=== PATIENT | male | born 1985 | race Caucasian/White ===

== ENCOUNTER 2019-08-29 18:30 | Emergency (ER) | payer OTHER ==
[2019-08-29 18:41] VITALS: BP 137/90; PULSE 92; RESP 18; TEMP 97.8
--- NOTE | 2019-08-29 18:55 | ED ---
Recheck HPI - General Chief Complaint: Recheck/Abnormal Lab/Rx Stated Complaint: Covid exposure, wants test Time Seen by Provider: 08/29/19 18:42 Source: patient Mode of arrival: ambulatory Limitations: no limitations - History of Present Illness Initial Comments: Patient is a 34-year-old male presenting to the emergency department requesting a Covid test. Patient states he had recent exposure to someone who tested positive for Covid. Patient denies any symptoms at this time including fever, cough, chills, shortness of breath, nausea, vomiting, diarrhea. He states he is traveling out of the country soon and needs to know if he is positive or not. He denies history of asthma or COPD. He has no further complaints at this time. Upon arrival to the ER, his vital signs are stable. - Related Data Allergies Allergy/AdvReac Type Severity Reaction Status Date / Time No Known Allergies Allergy Verified 08/29/19 18:36 Review of Systems ROS Statement: Those systems with pertinent positive or pertinent negative responses have been documented in the HPI. ROS Other: All systems not noted in ROS Statement are negative. Past Medical History Past Medical History: No Reported History History of Any Multi-Drug Resistant Organisms: None Reported Past Surgical History: Orthopedic Surgery Additional Past Surgical History / Comment(s): R hand Past Psychological History: No Psychological Hx Reported Smoking Status: Never smoker Past Alcohol Use History: None Reported Past Drug Use History: None Reported General Exam - General Exam Comments Initial Comments: GENERAL: Well-appearing, well-nourished and in no acute distress. HEAD: Atraumatic, normocephalic. EYES: Pupils equal round and reactive to light, extraocular movements intact, sclera anicteric, conjunctiva are normal. ENT: TMs normal, nares patent, oropharynx clear without exudates. Moist mucous membranes. NECK: Normal range of motion, supple without lymphadenopathy or JVD. LUNGS: Breath sounds clear to auscultation bilaterally and equal. No wheezes rales or rhonchi. HEART: Regular rate and rhythm without murmurs, rubs or gallops. ABDOMEN: Soft, nontender, normoactive bowel sounds. No guarding, no rebound. No masses appreciated. : Deferred EXTREMITIES: Normal range of motion, no pitting or edema. No clubbing or cyanosis. NEUROLOGICAL: Normal speech, normal gait. PSYCH: Normal mood, normal affect. SKIN: Warm, Dry, normal turgor, no rashes or lesions noted. Limitations: no limitations Course Vital Signs 08/29/19 18:36 Temperature 97.8 F Pulse Rate 92 Respiratory 18 Rate Blood Pressure 137/90 O2 Sat by Pulse 99 Oximetry Medical Decision Making - Medical Decision Making Patient is a 34-year-old male presenting requesting a Covid test. He admits to recent exposure with positive patient. He is going [place] the [place] centimeters no diffuse positive or not. He denies any symptoms at this time. Exam is unremarkable, vitals are stable. Patient was tested for COVID and results are pending. He is stable for discharge. Disposition Clinical Impression: Encounter for laboratory testing for COVID-19 virus Disposition: HOME SELF-CARE Condition: Stable Instructions (If sedation given, give patient instructions): Normal Exam (ED) Additional Instructions: Please return to the Emergency Department if symptoms worsen or any other concerns. Is patient prescribed a controlled substance at d/c from ED?: No Referrals: Quentin Vital MD [Primary Care Provider] - 1-2 days
== END 2019-08-29 19:13 | disposition home or self-care (01) ==
LOC: EC 18:30
DX: Z03.818 Encounter for observation for suspected exposure to other biological agents ruled out (principal)
CPT/HCPCS: 99283; U0003